=== PATIENT | male | born 1980 | race African-American/Black ===

== ENCOUNTER 2018-09-10 22:41 | Emergency (ER) | payer OTHER ==
[2018-09-10 22:48] VITALS: BP 127/69; PULSE 66; TEMP 97.4; BMI 21.2
[2018-09-10] MEDS ORDERED: IBUPROFEN 600 MG TABLET (FP) PO ONE (23:15)
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
[2018-09-10] MEDS ORDERED: IBUPROFEN 400 MG TABLET (FP) PO ONE (23:48)
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
== END 2018-09-11 00:08 | disposition home or self-care (01) ==
LOC: JER 22:41
DX: M54.5 Low back pain (principal); V73.5XXA Driver of bus injured in collision with car, pick-up truck or van in traffic accident, initial encounter; Y92.414 Local residential or business street as the place of occurrence of the external cause; Y99.0 Civilian activity done for income or pay; Y93.89 Activity, other specified
CPT/HCPCS: 99281-25